=== PATIENT | female | born 1945 | race Caucasian/White ===

== ENCOUNTER 2022-05-20 20:45 | Inpatient (IN) | payer OTHER ==
[~2022-05-20] VITALS: Ht 157.5 cm; Wt 67.1 kg
--- NOTE | 2022-05-20 21:17 | NUR ---
PACIENTE ALERTA Y ORIENTADA POR MAZIN, ACOMPANADA DE HIJA. ESTA REFIERE DIFICUL TAD PARA RESPIRAR DESDE ROSS. REFIERE ES PACIENTE DE COPD.
[2022-05-20] MEDS ORDERED: NORVASC10 MG PO (21:19)
[2022-05-20] MEDS ORDERED: LIPITOR40 M1 PO (21:19)
[2022-05-20] MEDS ORDERED: VITAMIN D310 MCG/1 M (21:20)
[2022-05-20] MEDS ORDERED: COLESTID1 GM PO (21:20)
[2022-05-20] MEDS ORDERED: LEVO-T112 MCG (21:21)
[2022-05-20] MEDS ORDERED: ELIQUIS5 MG PO (21:21)
[2022-05-20] MEDS ORDERED: TOPROL XL50 M1 (21:21)
--- NOTE | 2022-05-20 22:06 | NUR ---
SE REALIZAN MUESTRAS DE MOISES A PACIENTE POR ORDEN MEDICA, SE COLOCA SALIN LOCK, SE REALIZA EKG, SE CONECTA A MONITOR CARDIACO. Y SE MANTIENE JAYJAY SPERA DE TERAPIA PARA REALIZAR GASES ALTERIALES.
--- NOTE | 2022-05-21 01:09 | NUR ---
SE RECIBE PACIENTE ALERTA Y ORIENTADA X3. LA MISMA ESTA CANALZIA EN MANO DERECHA PATENTE Y CUCO DE DOLOR. CON UN TRIDIL 50 MG/250 ML @ 4 ML/HR. CANULA NSAL A 2 L/MIN. KELLEY DRENANDO A GRAVEDAD ORINA AMARILLA GREGORIO. SE ORIENTA SOBRE EL TX QUE ESTA RECIBIENDO Y ESTA REFIERE ENTENDER
--- NOTE | 2022-05-21 07:06 | NUR ---
PTE ALERTA,ESTABLE Y ORIENTADA.CONTECTADA A MONITOR CARDIACO,KELLEY,CANULA NASAL Y CON UN TRIDIL BAJANDOLE A 5 ML.SE EDUCA PTE SOBRE EL TRATAMIENTO QUE RECIBIRA EN EL HOSPITAL Y ESTA REIFERE ENTENDER.SE MANTIENE EN LA ESPERA DEL
== END 2022-06-07 19:33 | disposition expired ==
LOC: ER 20:45 → MEDI 05-21 13:30 → MEDJ 05-21 14:00 → ICU 05-24 14:32 → MEDI 05-28 20:54
PROVIDERS: ADMIT Internal Medicine; ATTEND Internal Medicine
PROC: BW24ZZZ Computerized Tomography (CT Scan) of Chest and Abdomen (ICD-10-PCS; 2022-05-20)
PROC: 4A12X4Z Monitoring of Cardiac Electrical Activity, External Approach (ICD-10-PCS; 2022-05-21)
PROC: B24BYZZ Ultrasonography of Heart with Aorta using Other Contrast (ICD-10-PCS; 2022-05-21)
PROC: 5A0945A Assistance with Respiratory Ventilation, 24-96 Consecutive Hours, High Flow/Velocity Cannula (ICD-10-PCS; 2022-05-22)
PROC: 02HV33Z Insertion of Infusion Device into Superior Vena Cava, Percutaneous Approach (ICD-10-PCS; 2022-05-23)
PROC: 0W993ZZ Drainage of Right Pleural Cavity, Percutaneous Approach (ICD-10-PCS; principal; 2022-05-25)
PROC: 5A09557 Assistance with Respiratory Ventilation, Greater than 96 Consecutive Hours, Continuous Positive Airway Pressure (ICD-10-PCS; 2022-05-25)
DX: I11.0 Hypertensive heart disease with heart failure (principal); I50.33 Acute on chronic diastolic (congestive) heart failure; I21.4 Non-ST elevation (NSTEMI) myocardial infarction; J69.0 Pneumonitis due to inhalation of food and vomit; J96.01 Acute respiratory failure with hypoxia; I48.20 Chronic atrial fibrillation, unspecified; J44.1 Chronic obstructive pulmonary disease with (acute) exacerbation; J91.8 Pleural effusion in other conditions classified elsewhere; I69.354 Hemiplegia and hemiparesis following cerebral infarction affecting left non-dominant side; J98.11 Atelectasis; I27.23 Pulmonary hypertension due to lung diseases and hypoxia; E09.65 Drug or chemical induced diabetes mellitus with hyperglycemia; T38.0X5A Adverse effect of glucocorticoids and synthetic analogues, initial encounter; Z66 Do not resuscitate; E78.1 Pure hyperglyceridemia; E03.8 Other specified hypothyroidism; Z79.01 Long term (current) use of anticoagulants; Z87.891 Personal history of nicotine dependence